=== PATIENT | male | born 1955 | race Caucasian/White ===

== ENCOUNTER 2017-03-12 11:09 | Day surgery (SDC) | payer OTHER ==
[~2017-03-12 11:09] MED LIST: ASACOL HD800 M1 PO; ASACOL HD800 MG PO; FISH OIL 1,0001 EAC6 PO; FLOMAX0.4 MG PO; MULTIVITAMINS1 EAC6 PO; NORCO 5/325 TAB1 TAB PO
== END 2017-03-12 18:50 ==
LOC: SHSB 11:09 → ORW 13:09 → PACU 14:53 → SHSB 15:40
PROC: 0YU60JZ Supplement Left Inguinal Region with Synthetic Substitute, Open Approach (ICD-10-PCS; principal; 2017-03-12)
DX: K40.90 Unilateral inguinal hernia, without obstruction or gangrene, not specified as recurrent (principal); M19.90 Unspecified osteoarthritis, unspecified site; J30.9 Allergic rhinitis, unspecified; L30.9 Dermatitis, unspecified; L01.00 Impetigo, unspecified; E29.1 Testicular hypofunction; Z87.19 Personal history of other diseases of the digestive system; Z79.899 Other long term (current) drug therapy; Z88.2 Allergy status to sulfonamides; Z87.891 Personal history of nicotine dependence; Z98.890 Other specified postprocedural states
CPT/HCPCS: C1781; J0690; J1650